=== PATIENT | male | born 1980 | race Caucasian/White ===

== ENCOUNTER 2017-07-22 18:54 | Emergency (ER) | payer BC ==
[2017-07-22] MEDS ORDERED: Sodium Chloride 0.9% 1000 ML 1,000 ML ONE (19:23)
--- NOTE | 2017-07-22 19:25 | ERPHSYRPT ---
- History of Present Illness Time Seen by Provider: 07/22/17 19:14 Historian: patient Exam Limitations: clinical condition Patient Subjective Stated Complaint: pain in abdomen directly behind navel. Pain in lower left quadrant with palpation Triage Nursing Assessment: Pt A&O x3, complains of pain behind navel and has pain in the lower left quadrant with palpation, denies n&v, no abnormal stool, bp 165/96, afebrile, bowel sounds heard in all 4 quadrants, does not appear to be in any distress Physician History: PATIENT STATES HE HAD PERIUMBILICAL ABDOMINAL PAIN SINCE EARLIER THIS AM, DENIES NAUSEA, EMESIS, FEVER, DIARRHEA, URINARY SYMPTOMS. DENIES RADIATION TO BACK. Timing/Duration: today Activities at Onset: none Quality: sharpness Abdominal Pain Onset Location: periumbilical Pain Radiation: no radiation Severity of Pain-Max: moderate Modifying Factors: Improves With: other (STANDING AND LIFTING) Previous symptoms: no prior history Allergies/Adverse Reactions: No Known Drug Allergies Allergy (Verified 07/22/17 19:11) Home Medications: Fexofenadine HCl [Agatha] 30 mg PO DAILY PRN 07/22/17 [History] - Review of Systems Constitutional: No Fever, No Chills Eyes: No Symptoms Ears, Nose, & Throat: No Symptoms Respiratory: No Symptoms, No Cough, No Dyspnea Cardiac: No Symptoms, No Chest Pain, No Edema, No Syncope Abdominal/Gastrointestinal: Abdominal Pain, No Nausea, No Vomiting, No Diarrhea Genitourinary Symptoms: No Symptoms, No Dysuria Musculoskeletal: No Symptoms, No Back Pain, No Neck Pain Skin: No Rash Neurological: No Dizziness, No Focal Weakness, No Sensory Changes Psychological: No Symptoms Endocrine: No Symptoms All Other Systems: Reviewed and Negative - Past Medical History Pertinent Past Medical History: Yes Other Medical History: gout - Past Surgical History Past Surgical History: No - Social History Smoking Status: Former smoker Exposure to second hand smoke: No Drug Use: none Patient Lives Alone: No - Nursing Vital Signs Nursing Vital Signs: Initial Vital Signs Temperature 97.9 F 07/22/17 19:00 Pulse Rate 95 H 07/22/17 19:00 Blood Pressure 165/96 07/22/17 19:00 O2 Sat by Pulse Oximetry 97 07/22/17 19:00 Pain Scale Pain Intensity 5 - Physical Exam General Appearance: no apparent distress, alert Eye Exam: PERRL/EOMI, eyes nml inspection Ears, Nose, Throat Exam: normal ENT inspection, pharynx normal, moist mucous membranes Neck Exam: normal inspection, non-tender, supple, full range of motion Respiratory Exam: normal breath sounds, lungs clear, No respiratory distress Cardiovascular Exam: regular rate/rhythm, normal heart sounds Gastrointestinal/Abdomen Exam: soft, normal bowel sounds, tenderness ( SUPRAUMBILICAL TENDERNESS), No mass Back Exam: normal inspection, normal range of motion, No CVA tenderness, No vertebral tenderness Extremity Exam: normal inspection, normal range of motion, pelvis stable Neurologic Exam: alert, oriented x 3, cooperative, normal mood/affect, nml cerebellar function, sensation nml, No motor deficits Skin Exam: normal color, warm, dry SpO2 Interpretation: normal SpO2: 97 Oxygen Delivery: Room Air - CT Exams Abdomen/Pelvis CT Interpretation: Tele-radiologist Report ( THERE IS A LARGE ENHANCING HEPATIC LESION MEASURING 6.8 X 6.0CM WITH MILD MASS EFFECT EITHER FOCAL NODULAR HYPERPLASIA VS CAVERNOUS HEMANGIOMA) Ordered Tests: Active Orders 24 hr Category Date Time Status Clean Catch Urine Specimen STAT Care 07/22/17 19:10 Active IV Insertion STAT Care 07/22/17 19:10 Active ABDOMEN AND PELVIS W CONTRAST [CT] Stat Exams 07/22/17 19:21 Completed AMYLASE Stat Lab 07/22/17 19:05 Completed CBC W DIFF Stat Lab 07/22/17 19:05 Completed CMP Stat Lab 07/22/17 19:05 Completed LIPASE Stat Lab 07/22/17 19:05 Completed UA W/ MICROSCOPIC Stat Lab 07/22/17 19:05 Completed Medication Summary Generic Name Dose Route Start Last Admin Trade Name Desire PRN Reason Stop Dose Admin Sodium Chloride 1,000 mls @ 500 mls/hr 07/22/17 19:30 07/22/17 19:24 Sodium Chloride 0.9% 1000 Ml IV 08/21/17 19:29 500 mls/hr .Q2H ANH Administration Lab/Rad Data: Laboratory Result Diagrams 07/22/17 19:05 07/22/17 19:05 Laboratory Results 07/22/17 07/22/17 07/22/17 Range/Units 19:05 19:05 19:05 WBC 15.1 H (4.0-10.5) K/mm3 RBC 5.58 (4.1-5.6) M/mm3 Hgb 16.8 (12.5-18.0) gm/dl Hct 47.3 (42-50) % MCV 84.8 (78-100) fl MCH 30.1 (26-32) pg MCHC 35.5 (32-36) g/dl RDW 13.3 (11.5-14.0) % Plt Count 313 (150-450) K/mm3 MPV 10.5 H (6-9.5) fl Gran % 64.0 (36.0-66.0) % Eos # (Auto) 0.42 (0-0.5) Absolute Lymphs (auto) 3.56 (1.0-4.6) Absolute Monos (auto) 1.41 H (0.0-1.3) Lymphocytes % 23.6 L (24.0-44.0) % Monocytes % 9.3 (0.0-12.0) % Eosinophils % 2.8 (0.00-5.0) % Basophils % 0.3 (0.0-0.4) % Absolute Granulocytes 9.66 H (1.4-6.9) Basophils # 0.04 (0-0.4) Sodium 140 (137-145) mmol/L Potassium 3.4 L (3.5-5.1) mmol/L Chloride 99 (98-107) mmol/L Carbon Dioxide 27 (22-30) mmol/L Anion Gap 17.6 H (5-15) MEQ/L BUN 20 (9-20) mg/dL Creatinine 1.23 (0.66-1.25) mg/dL Estimated GFR > 60.0 ML/MIN Glucose 105 (74-106) mg/dL Calcium 10.1 (8.4-10.2) mg/dL Total Bilirubin 0.70 (0.2-1.3) mg/dL AST 39 (17-59) U/L ALT 40 (0-50) U/L Alkaline Phosphatase 95 (38-126) U/L Serum Total Protein 8.2 (6.3-8.2) g/dL Albumin 4.9 (3.5-5.0) g/dL Amylase 80 (30-110) U/L Lipase 119 (23-300) U/L Ur Collection Type CLEAN CATCH Urine Color YELLOW (YELLOW) Urine Appearance CLEAR (CLEAR) Urine pH 5.0 (5-6) Ur Specific Vancleave 1.030 (1.005-1.025) Urine Protein NEGATIVE (Negative) Urine Ketones SMALL (NEGATIVE) Urine Blood 250 (0-5) Leon/ul Urine Nitrite NEGATIVE (NEGATIVE) Urine Bilirubin NEGATIVE (NEGATIVE) Urine Urobilinogen NORMAL (0-1) mg/dL Ur Leukocyte Esterase NEGATIVE (NEGATIVE) Urine Microscopic RBC 2-5 (0-2) /HPF Urine Microscopic WBC 0-2 (0-5) /HPF Ur Epithelial Cells RARE (FEW) /HPF Urine Bacteria RARE (NEGATIVE) /HPF Urine Culture Reflexed NO (NO) Urine Glucose NEGATIVE (NEGATIVE) mg/dL Specimen Received 07/22/17 1915 - Progress Progress: unchanged Progress Note: 07/22/17 19:24 IV NORMAL SALINE 500ML/HR Counseled pt/family regarding: lab results, diagnosis, need for follow-up - Departure Time of Disposition: 21:27 Departure Disposition: Home Clinical Impression: ABDOMINAL PAIN, HEPATIC MASS Condition: Stable Critical Care Time: No Additional Instructions: CALL [facility] AT TOMORROW TO SCHEDULE AN APPOINTMENT. TAKE COPY OF THE CT SCAN DISC OF ABDOMEN AND PELVIS FOR YOUR APPOINTMENT. ALSO CONSULT YOUR PRIMARY CARE PROVIDER TOMORROW FOR APPOINTMENT. TYLENOL EVERY 4-6 HOURS NEEDED FOR PAIN.
[2017-07-22] MEDS ORDERED: Sodium Chloride 0.9% 1000 ML 1,000 ML IV SCH (19:30)
[2017-07-22 19:35] LABS: BASOPHIL % 0.3 % (0.0-0.4); Basophil (Absolute #) 0.04 (0-0.4); Eosinophil % 2.8 % (0.00-5.0); Eosinophil (Absolute #) 0.42 (0-0.5); Granulocyte Absolute (ANC) 9.66 (1.4-6.9); Hematocrit 47.3 % (42-50); Hemoglobin 16.8 gm/dl (12.5-18.0); Lymphocyte (Absolute #) 3.56 (1.0-4.6); Lymphocytes % 23.6 % (24.0-44.0); Mean Cell Volume 84.8 fl (78-100); Mean Corpuscular Hemoglobin 30.1 pg (26-32); Mean Corpuscular Hgb Concent. 35.5 g/dl (32-36); Mean Platelet Volume 10.5 fl (6-9.5); Monocyte (Absolute #) 1.41 (0.0-1.3); Monocytes % 9.3 % (0.0-12.0); Platelet Count 313 K/mm3 (150-450); Red Blood Count 5.58 M/mm3 (4.1-5.6); Red Cell Distribution Width 13.3 % (11.5-14.0); White Blood Count 15.1 K/mm3 (4.0-10.5)
[2017-07-22 19:49] LABS: ALBUMIN 4.9 g/dL (3.5-5.0); ALKALINE PHOSPHATASE 95 U/L (38-126); AMYLASE 80 U/L (30-110); ANION GAP 17.6 MEQ/L (5-15); BLOOD UREA NITROGEN 20 mg/dL (9-20); CHLORIDE 99 mmol/L (98-107); Calcium 10.1 mg/dL (8.4-10.2); Carbon Dioxide 27 mmol/L (22-30); Creatinine 1 1.23 mg/dL (0.66-1.25); Glucose 105 mg/dL (74-106); LIPASE 119 U/L (23-300); Potassium 3.4 mmol/L (3.5-5.1); SGOT/AST 39 U/L (17-59); SGPT/ALT 40 U/L (0-50); SODIUM 140 mmol/L (137-145); Total Protein 8.2 g/dL (6.3-8.2)
[2017-07-22 20:14] LABS: Appearance CLEAR (CLEAR); Bilirubin NEGATIVE (NEGATIVE); Blood 250 Ery/ul (0-5); Glucose NEGATIVE (NEGATIVE); Ketones SMALL (NEGATIVE); Leukocyte Esterase NEGATIVE (NEGATIVE); Nitrite NEGATIVE (NEGATIVE); Protein,Urine Dip NEGATIVE (Negative); Urobilinogen NORMAL mg/dL (0-1)
[2017-07-22 20:15] LABS: Bacteria RARE /HPF (NEGATIVE); Epithelial Cells RARE /HPF (FEW); WBC 0-2 /HPF (0-5)
--- NOTE | 2017-07-22 21:10 | XRAY ---
Indication: Abdomen pain. Multiple contiguous axial images obtained through the abdomen and pelvis using 80 cc Isovue 370 contrast only. Comparison: None Lung bases are clear. Heart is not enlarged. Noncontrasted stomach and bowel loops appear nonobstructed. Normal appendix. No free fluid/air. There is a 6.8 x 6.0 cm central hepatic hyperdense enhancing lesion with central scar favoring focal nodular hyperplasia. The hepatic lesion appears isodense on delayed which also raises possibility for cavernous hemangioma. There is mild effacement of the IVC. Remaining liver, gallbladder, pancreas, spleen, adrenal glands, kidneys, ureters, bladder, and aorta appear normal in CT appearance and attenuation. No pathologic retroperitoneal lymphadenopathy. Osseous structures intact. Impression: 1. Large enhancing hepatic lesion with mild mass effect either focal nodular hyperplasia versus cavernous hemangioma. 2. Remaining CT abdomen/pelvis with contrast exam is negative. Comment: Preliminary interpretation was made by [facility]. No critical discrepancy. CTDI 22.23
[2017-07-22 21:30] VITALS: BP 126/80; PULSE 81; O2SAT 98
== END 2017-07-22 21:37 | disposition home or self-care (01) ==
LOC: ED 18:54
DX: R10.33 Periumbilical pain (principal); R16.0 Hepatomegaly, not elsewhere classified
CPT/HCPCS: 36000; 36415; 74177; 80053; 81000; 82150; 83690; 85025; 99283; 99284

== ENCOUNTER 2024-07-21 05:55 | Day surgery (SDC) | payer BC ==
[2024-07-21] MEDS ORDERED: Lactated Ringers 1,000 ML IV ONE (06:00)
[2024-07-21 06:17] VITALS: RESP 16
[2024-07-21] MEDS: Lactated Ringers 1,000 ML IV SCH (06:58)
[2024-07-21] MEDS ORDERED: propofoL IV ONE ×2 (07:33→07:41)
[2024-07-21] MEDS ORDERED: Versed 2 MG/2 ML Injection ONE (07:33)
[2024-07-21 08:25] VITALS: PULSE 74
[2024-07-21 08:38] VITALS: BP 128/84; TEMP 97.3; O2SAT 99
--- NOTE | 2024-07-22 10:48 | OP ---
SURGERY DATE/TIME: 07/21/2024 [id number] PREOPERATIVE DIAGNOSIS: Screening exam. POSTOPERATIVE DIAGNOSIS: Normal colon. PROCEDURE: Colonoscopy. SURGEON: Jeromy Brock MD ANESTHESIA: Medications were given by the anesthesia department. INDICATIONS: The patient is a 44-year-old white male patient now presenting for screening colonoscopy. He reports that his mother had developed colon cancer at age 49, and he has had other family members with colon polyps. The patient is felt to need to have endoscopic evaluation. He was apprised of the risks of the procedure, the risk of perforation, phlebitis, untoward reaction to medication, bleeding, and missed lesions. The patient verbalized his understanding and desired to have procedure performed. DESCRIPTION OF PROCEDURE AND FINDINGS: The patient was given medication by the anesthesia department. He had continuous pulse oximetry, ECG monitoring, and intermittent blood pressure monitoring during the examination. He was placed in the left lateral decubitus position. Digital rectal examination was performed and revealed normal anal sphincter tone, no masses and a normal prostate. The flexible Olympus videocolonoscope was used to intubate the rectum. A view of the colon was developed sequentially to the cecum. Upon insertion and withdrawal, including retroflexed view in the rectum, no mucosal lesions were encountered. The scope was removed from the patient, who tolerated the procedure well, and was sent back to outpatient recovery in good condition. The prep was noted to be fair with large amounts of thick, green, opaque fluid remaining in the colon which was suctioned clear to the best of our ability.
== END 2024-07-21 08:47 | disposition home or self-care (01) ==
LOC: SDC 05:55
PROVIDERS: ATTEND Family Medicine
DX: Z12.11 Encounter for screening for malignant neoplasm of colon (principal)
CPT/HCPCS: J2250; J2704